=== PATIENT | male | born 1945 | race Caucasian/White ===

== ENCOUNTER → 2020-12-06 | Outpatient (CLI) | payer OTHER ==
--- NOTE | 2020-12-06 13:51 | 2DMMODE ---
[facility] [place] [address] 2 D/M-MODE ECHOCARDIOGRAM Name: ADRIAN ROB Room #: REG Jessica M.R.#: [id number] Admission: 12/06/20 Attend Phys: Nima Aguilar Discharge: Date of : 47 Report #: [id number] THIS REPORT FOR: cc: Natividad Sanchez MD, Stephanie J. MD Park, Jin S. MD ~ APPROVED REPORT Study performed: 12/06/2020 11:59:25 EXAM: Comprehensive 2D, Doppler, and color-flow Echocardiogram Patient Location: Out-Patient Room #: 2 Status: routine BSA: 2.08 HR: 61 bpm BP: 140/88 mmHg Rhythm: NSR Other Information Study Quality: Technically Limited Technically limited study due to body habitus, inability to position patient. Indications COPD CAD Hypertension/HDD 2D Dimensions IVSd: 10.91 (7-11mm) LVOT Diam: 23.38 (18-24mm) LVDd: 48.99 mm PWd: 11.36 (7-11mm) Ascending Ao: 33.69 (22-36mm) LVDs: 33.98 (25-40mm) Left Atrium: 38.64 (27-40mm) Aortic Root: 41.17 mm Pulmonary Valve PV Peak Riley.: 1.18 m/s PV Peak Gr.: 5.61 mmHg Tricuspid Valve TR Peak Riley.: 2.48 m/s TR Peak Gr.: 24.61 mmHg PA Pressure: 35.[address] [facility] [address] [place] [address] 2 D/M-MODE ECHOCARDIOGRAM Name: ADRIAN ROB Room #: REG [facility].#: [id number] Admission: 12/06/20 Attend Phys: Nima May Discharge: Date of : 47 Report #: [id number] Left Ventricle The left ventricle is normal size. There is normal LV segmental wall motion. There is normal left ventricular wall thickness. The left ventricular systolic function is normal. The left ventricular ejection fraction is within the normal range. LVEF is 55-60%. This study is not technically sufficient to allow evaluation of the LV diastolic function. Right Ventricle Right ventricle is at the upper limits of normal. The right ventricular systolic function is normal. Atria Left atrium is borderline dilated. Right atrium is borderline dilated. Aortic Valve The aortic valve is normal in structure. The Aortic valve is sclerotic. No aortic regurgitation is present. There is no aortic valvular stenosis. Mitral Valve The mitral valve is normal in structure. Mild mitral regurgitation. No evidence of mitral valve stenosis. Tricuspid Valve The tricuspid valve is normal in structure. There is mild tricuspid regurgitation. Estimated PAP 32 mmHg. Pulmonic Valve The pulmonary valve is normal in structure. Trace to mild pulmonic regurgitation. Great Vessels The aortic root is normal in size. IVC is dilated. Pericardium There is no pericardial effusion. <Conclusion> The left ventricle is normal size. There is normal left ventricular wall thickness. The left ventricular systolic function is normal. Right ventricle is at the upper limits of normal. Left atrium is borderline dilated. [facility] [address] [place] [address] 2 D/M-MODE ECHOCARDIOGRAM Name: ADRIAN ROB Room #: REG [facility]#: [id number] Admission: 12/06/20 Attend Phys: Nima May Discharge: Date of : 47 Report #: [id number] The Aortic valve is sclerotic. Mild mitral regurgitation. There is mild tricuspid regurgitation. Estimated PAP 32 mmHg. <ELECTRONICALLY SIGNED> By: Iglesia Melissa MD 12/06/20 [id number] Iglesia Melissa MD /INF
== END ==
LOC: CV 12:02
PROVIDERS: ATTEND Chiropractor
DX: I08.8 Other rheumatic multiple valve diseases (principal); I25.9 Chronic ischemic heart disease, unspecified